=== PATIENT | female | born 1960 | race Caucasian/White ===

== ENCOUNTER 2021-06-26 16:41 | Emergency (ER) | payer BC, SELFPAY ==
--- NOTE | ~2021-06-26 | XR_ITS ---
EXAMINATION: XR foot RT min 3V EXAM DATE: 06/26/2021 17:11 INDICATION: Fell, pain and swelling all across top of foot. TECHNIQUE: Right foot dorsoplantar, lateral and oblique projections obtained and reviewed. There is no prior study for comparison. FINDINGS: There is acute closed posttraumatic fracture at the proximal aspect of the right 3rd metata rsal bone, in near-anatomic alignment and position. This appears to be extra-articular. On the lateral projection suspicion of 1st metatarsal base and also navicular acute closed posttrauma tic intra-articular fractures dorsally. Findings have been indicated for your review, clinical correl ation. IMPRESSION: 1. Right 3rd metacarpal shaft fracture proximally. 2. Probable navicular and 1st metatarsal base intra-articular fractures dorsally. Recommend orthoped ic consult. Reviewed, dictated and finalized at location [facility] IMPRESSION: 1. Right 3rd metacarpal shaft fracture proximally. 2. Probable navicular and 1st metatarsal base intra-articular fractures dorsal ly. Recommend orthopedic consult.
[2021-06-26 16:56] VITALS: BP 155/85; PULSE 91; RESP 16; TEMP 37; O2SAT 99
--- NOTE | 2021-06-26 16:58 | ED.LOWEXIN ---
HPI - Extremity Injury (Lower) General Chief Complaint: Extremity Injury, Lower Stated Complaint: Right Foot Pain Time Seen by Provider: 06/26/21 16:58 Source: patient and RN notes reviewed Mode of arrival: ambulatory Limitations: no limitations History of Present Illness HPI Narrative: 60-year-old female presents to the [facility] with right dorsal foot pain. Patient states she went to try to get up when in foot 1 move and the other 1 over dorsiflexed. Denies hitting head. No loss of consciousness. No back pain or neck pain. Bruising and swelling noted to the dorsal aspect of right foot. Positive pedal pulse. Capillary refill under 2 seconds. Sensation intact in all 5 toes Related Data Allergies Allergy/AdvReac Type Severity Reaction Status Date / Time Sulfa (Sulfonamide Allergy Rash Verified 06/26/21 17:21 Antibiotics) Review of Systems Review of Systems: All systems reviewed & are unremarkable except as noted in HPI and below Constitutional: Constitutional: Reports no additional constitutional complaints, Denies chills and Denies fever(s) Eyes: Eyes: Reports no additional eye complaints ENT: Reports system reviewed and no additional complaints, except as documented Cardiovascular: Cardiovascular: Reports no additional cardiovascular complaints Respiratory: Respiratory: Reports no additional respiratory complaints Gastrointestinal: Gastrointestinal: Reports no additional gastrointestinal complaints Musculoskeletal: Musculoskeletal: Reports as per HPI Comments: Dorsal aspect right foot pain, swelling, bruising Integumentary/Breasts: Skin/Breast: Reports as per HPI Neurologic: Reports system reviewed and no additional complaints, except as documented Psychiatric: Psychiatric: Reports no additional psychiatric complaints Allergic/Immunologic: Allergic/Immunologic: Reports no additional allergic/immunologic complaints PMFSH Past Medical History Medical History (Updated 06/26/21 @ 20:27 by Rain Yuan) Patient denies significant medical history Surgical History Surgical History (Updated 06/26/21 @ 20:27 by Rain Yuan) No pertinent past surgical history Social History Social History (Updated 06/26/21 @ 20:27 by Rain Yuan) Living arrangements: with family Gender identity (if verbalized by the patient): Female Comments At the time of my signature, I reviewed and agree with the nursing past medical, surgical, social, and family history. There is no relevant family history pertinent to the patient complaint. Exam Const: General: healthy appearing, no acute distress and alert Nutritional Appearance: well nourished and thin Orientation/consciousness: patient oriented x3 Limitations: no limitations HENMT: Head: normal to inspection Ears: external ears normal Eyes: Pupils: Equal, round and reactive pupils present Neck: Neck: normal visual inspection, no lymphadenopathy and no meningeal signs Chest: Chest palpation & inspection: normal inspection of the chest Resp: Effort & Inspection: normal respiratory effort Cardio: Rate: regular rate Rhythm: regular rhythm Back/Spine/Pelvis: Back: no CVA tenderness Cervical Spine: normal cervical lordosis, cervical ROM normal and No cervical muscular tenderness Thoracic/Lumbar Spine: thoracic and lumbar spine normal to inspection and thoraco-lumbar ROM normal Skin: General skin exam: normal color Rashes: no rashes Wounds: no wounds Neuro: General: patient oriented x3, moves all extremities, no meningeal signs and no focal motor deficits Speech: normal speech Extrem: General: full ROM, capillary refill normal and normal exam except as noted Right lower extremity: foot Details: tenderness (Dorsal aspect), toes with normal ROM, ecchymosis (Dorsal aspect), vascular exam (Normal) and motor-sensory exam; no unusual warmth Ankle/foot/toe images: 1. Tenderness with bruising and swelling noted. No signs of infection. Psych: A
== END 2021-06-26 18:08 | disposition home or self-care (01) ==
PROVIDERS: Emergency Provider Nurse Practitioner
DX: S92.334A Nondisplaced fracture of third metatarsal bone, right foot, initial encounter for closed fracture (principal); S92.254A Nondisplaced fracture of navicular [scaphoid] of right foot, initial encounter for closed fracture; S92.314A Nondisplaced fracture of first metatarsal bone, right foot, initial encounter for closed fracture; X58.XXXA Exposure to other specified factors, initial encounter
CPT/HCPCS: 29515; 73630; 99204; G0463